=== PATIENT | female | born 1950 | race Caucasian/White ===

== ENCOUNTER 2023-07-17 09:01 | Outpatient (CLI) | payer MEDICARE, SELFPAY ==
--- NOTE | 2023-07-17 09:08 | ECG_ITS ---
Measurements Intervals [place] Rate: 60 P: 34 TX: 210 QRS: 52 QRSD: 94 T: 80 QT: 447 QTc: 449 Interpretive Statements SINUS RHYTHM WITH FIRST DEGREE AV BLOCK POOR R-WAVE PROGRESSION BORDERLINE ECG NO PREVIOUS ECG AVAILABLE FOR COMPARISON Electronically Signed On 07-17-2023 18:19:35 WATER QUALITY ANALYST by Serg Parker M.D.
[2023-07-17 09:55] LABS: Hematocrit 35.3 % (37.0-47.0); Hemoglobin 10.8 g/dL (12.0-15.0); Mean Corpuscular HGB Conc 30.6 g/dl (32-36); Mean Corpuscular Hemoglobin 27.3 pg (26-34); Mean Corpuscular Volume 89.1 fl (80-100); Mean Platelet Volume 9.8 fl (7.4-10.4); Platelet Count Result 258 k/mm3 (150-375); Red Blood Count 3.96 M/mm3 (4.2-5.4); Red Cell Distribution Width 15.1 % (11.5-14.5); White Blood Count 7.1 K/mm3 (4.5-10.0)
[2023-07-17 10:09] LABS: INR 1.1; Prothrombin Time 14.6 Seconds (11.1-14.7)
[2023-07-17 10:10] LABS: Partial Thromboplastin Time 28.7 SECONDS (22.3-36.8)
[2023-07-17 10:11] LABS: Anion Gap 6 mmol/L (8-16); Blood Urea Nitrogen 13 mg/dL (7-17); Calcium 9.1 mg/dL (8.4-10.2); Carbon Dioxide 28 mmol/L (22-30); Chloride 103 mmol/L (98-107); Estimated Glomerular Filt Rate 54; Glucose 226 mg/dL (65-110); Potassium 3.8 mmol/L (3.4-5.0); Sodium 137 mmol/L (137-145)
== END 2023-07-17 09:02 | disposition home or self-care (01) ==
LOC: ANHSURGERY 09:07
PROVIDERS: Anesthesiology; PCP Internal Medicine; Visit Provider Student in an Organized Health Care Education/Training Program
DX: N85.9 Noninflammatory disorder of uterus, unspecified (principal); N94.89 Other specified conditions associated with female genital organs and menstrual cycle; E11.9 Type 2 diabetes mellitus without complications; Z01.818 Encounter for other preprocedural examination; I12.9 Hypertensive chronic kidney disease with stage 1 through stage 4 chronic kidney disease, or unspecified chronic kidney disease; N18.9 Chronic kidney disease, unspecified; I44.0 Atrioventricular block, first degree
CPT/HCPCS: 36415; 80048; 85027; 85610; 85730; 86850; 86900; 86901; 93005

== ENCOUNTER 2023-07-20 00:40 | Day surgery (SDC) | payer MEDICARE, SELFPAY ==
--- NOTE | 2023-07-10 14:06 | PC.NURSE ---
Report to the Outpatient Waiting Room, entrance under the green pavilion located off [facility], at time _1000 on date ___07/20/23____. Planned Procedure Time: _1200 . Time changes happen often and if your time is changed the preop area will call you the afternoon before. - You and your visitor will be asked to self-screen and do not enter if you have any COVID symptoms. - A mask is optional within the hospital at this time. Patients may have clear liquids (water, carbonated beverages, clear teas, apple juice) until 3 hours prior to surgery( 9:00AM) with a maximum of 20 ounces. - No food from midnight until time of surgery - Infants may have breast milk until 4 hours before surgery, infant formula 6 hours prior to surgery. - Children will be allowed to drink immediately following surgery. If applicable, please bring a bottle or sippy cup to assist with drinking. Juice, water, soda, and popsicles are readily available. For infants on formula, please bring formula the day of surgery. Pacifiers are allowed. Take the following medications with a SIP of water the morning of surgery: _AMLODIPINE,CITALOPRAM AND METOPROLOL ,ALPRAZOLAM IF NEEDED DO NOT STOP ANY OF YOUR OTHER PRESCRIPTION MEDICATIONS PRIOR TO SURGERY ?EXCEPT THE FOLLOWING Medications to discontinue per physician _PT TO CALL DR DOUGHERTY WHEN TO HOLD ASPIRIN AND PLAVIX, HOLD ALL VITAMINS AND SUPPLEMENTS 3 DAYS PRE OP .LAST DOSE 07/16/23_ Please no make-up, nail mohawk, hairspray, perfume, deodorant, or body powder the day of surgery. No jewelry (including any body piercings) or valuables the day of surgery, leave them at home. Please take a shower or bath the night before, or the morning of, surgery with an antibacterial soap. Wear comfortable, loose fitting clothing. Children are encouraged to wear pajamas. - Jewelry must be removed prior to entering the operating room. Rings and piercings that are not removed may be cut off. - The hospital will not accept responsibility for valuables. - Please leave all valuables, including medications, at home the day of surgery. If you are going home after surgery, a licensed bulk delivery driver must drive you home. - NO public transportation without another adult if you receive anesthesia. - We recommend that an adult stay with you for 24 hours following discharge. - We also recommend that you do not drive, make important decision, drink alcoholic beverages, or take any drugs that were not prescribed by your health care provider for at least 24 hours after your discharge time. Follow any additional instructions given to you from your surgeon. If you or anyone in your household have experienced Covid symptoms in the past week, please notify your surgeon or the nurse liaison at the phone number below for possible testing. Telephone instructions given to ____PATIENT and asked if any additional questions and then verbalized understanding. Patient advised to call surgeon office or pre surgery nurse liaison [phone] if any additional questions.
[2023-07-10 14:31] VITALS: BMI 22.3
[2023-07-20] VITALS (7 sets, daily range): BP systolic 104–146; BP diastolic 54–88; PULSE 57–85; RESP 14–19; TEMP 36.2–37.2; O2SAT 96–100; BMI 22.6
--- NOTE | 2023-07-20 07:22 | PM.IMHP ---
H&P: HPI History of Present Illness Date/Time: 07/20/23 07:22 Chief Complaint: right adnexal mass thickened endometrium on pelvic US Narrative: 73-year-old female who presents to discuss a cystic mass noted on her right ovary.? Patient was getting a routine screening lung scan when an adnexal mass was incidentally found.? Patient was asymptomatic.? She denied any pelvic pain, bloating.? She denies any inadvertent weight loss.? She denies any early satiety.? Patient does report some difficulties initiating voiding.? Patient reports occasional constipation.? Patient's imaging also showed an endometrial lining of 5 mm.? Patient denies any vaginal bleeding. Review of Systems Cardiovascular: Cardiovascular: Denies chest pain, Denies leg edema, Denies palpitations, Denies dyspnea and Denies dyspnea on exertion Respiratory: Respiratory: Denies cough, Denies dyspnea and Denies dyspnea on exertion Gastrointestinal: Gastrointestinal: Denies abdominal pain, Denies constipation, Denies diarrhea, Denies nausea and Denies vomiting Genitourinary: Genitourinary: Denies hematuria, Denies urinary frequency, Denies dysuria, Denies pelvic pain, Denies urinary incontinence and Denies vaginal discharge Neurologic: Reports system reviewed and no additional complaints, except as documented Psychiatric: Psychiatric: Reports no additional psychiatric complaints Endocrine: Endocrine: Denies palpitations PMFSH Past Medical History Medical History Anxiety and depression Coronary atherosclerosis (~01/2011) Two Drug Eluting Right Cornary Stents / and 06/2010 Diabetes type 2 GERD (gastroesophageal reflux disease) H/O central nervous system infection Hyperlipidemia Hypertension Vitamin D deficiency Surgical History Surgical History History of lumbar laminectomy (~06/2010) History of orthopedic surgery (~03/2012) rotator cuff History of tonsillectomy Family History Family History Mother Diabetes mellitus Hypertension Intracranial aneurysm, Onset Age: 57 Father Heart disease Sibling Heart disease brother Breast cancer sister Afib sister / brother Social History Social History (Updated 06/05/23 @ 11:04 by Stefani Moscoso CMA) Smoking packs per day: 1 Smoking cigarettes per day: 20.0 Years smoked: 40 Smoking pack-years: 40.00 Smoking status: Current every day smoker Tobacco type: cigarettes Alcohol intake: never Substance use: never Living arrangements: with family Occupation/Education: retired Gender identity (if verbalized by the patient): Female Sexual Orientation (if Verbalized by the Patient): Straight or Heterosexual Spiritual care concerns: No Meds Home Medications and Allergies Home Medications Medication Instructions Recorded Confirmed Type alprazolam 0.5 mg tablet 0.25 mg PO PRN PRN Anxiety 06/05/23 07/10/23 History atorvastatin 40 mg tablet 40 mg PO DAILY 06/05/23 07/10/23 History citalopram 20 mg tablet 20 mg PO DAILY 06/05/23 07/10/23 History clopidogrel 75 mg tablet 75 mg PO DAILY 06/05/23 07/10/23 History dapagliflozin propanediol 10 mg 10 mg PO DAILY 06/05/23 07/10/23 History tablet (Farxiga) ergocalciferol (vitamin D2) 1,250 1,250 mcg PO WEEKLY 06/05/23 07/10/23 History mcg (50,000 unit) capsule esomeprazole magnesium 40 mg 40 mg PO DAILY 06/05/23 07/10/23 History capsule,delayed release gabapentin 100 mg capsule 100 mg PO PRN PRN Pain 06/05/23 07/10/23 History glimepiride 4 mg tablet 4 mg PO DAILY 06/05/23 07/10/23 History insulin glargine U-300 conc 300 15 unit subcut HS 06/05/23 07/10/23 History unit/mL (1.5 mL) subcutaneous pen (Sydnee Franklin U-300 Insulin) lisinopril 20 mg tablet 20 mg PO DAILY 06/05/23 07/10/23 History metformin 1,000 mg tablet 1,000 mg PO DAILY
[2023-07-20 10:21] LABS: Glucose Point of Care 107 mg/dl (65-105)
[2023-07-20] MEDS: KETOROLAC 15 MG/ML VIAL (*BKC) IV PUSH (10:35)
[2023-07-20] MEDS: LACTATED RINGERS 1,000 ML 30 ML IV CONT ×2 (10:35→12:53)
[2023-07-20] MEDS: ACETAMINOPHEN 500 MG TABLET 1000 MG PO (10:35)
--- NOTE | 2023-07-20 11:33 | WPDANESEPPF ---
Anes - Initial Pre Proc Eval Procedure: Operation Date: 07/20/23 12:00 Proposed Procedures p Endometrial Biopsy, Laparoscopic Right Salpingo Oophorectomy - Greg Guerra MD Date/Time: 07/20/23 11:33 Surgeon: Greg Guerra MD Pre Op Diagnosis: endometrial dysplasia, right adnexal mass Patient Data Age: 73 Gender: F Height: 1.63 m Weight: 59.75 kg Last Vital Signs Temp 36.2 C L 07/20/23 10:53 Pulse 57 L 07/20/23 10:53 Resp 14 07/20/23 10:53 BP 142/69 H 07/20/23 10:53 Pulse Ox 97 07/20/23 10:53 Allergies Allergy/AdvReac Type Severity Reaction Status Date / Time Penicillins Allergy Intermediate Hives Verified 07/20/23 10:14 Iodinated Contrast Media AdvReac Severe Confusion Verified 07/20/23 10:14 Home Medications Medication Instructions Recorded Confirmed Type alprazolam 0.5 mg tablet 0.25 mg PO PRN PRN Anxiety 06/05/23 07/20/23 History atorvastatin 40 mg tablet 40 mg PO DAILY 06/05/23 07/10/23 History citalopram 20 mg tablet 20 mg PO DAILY 06/05/23 07/10/23 History clopidogrel 75 mg tablet 75 mg PO DAILY 06/05/23 07/10/23 History dapagliflozin propanediol 10 mg 10 mg PO DAILY 06/05/23 07/10/23 History tablet (Farxiga) ergocalciferol (vitamin D2) 1,250 1,250 mcg PO WEEKLY 06/05/23 07/20/23 History mcg (50,000 unit) capsule esomeprazole magnesium 40 mg 40 mg PO DAILY 06/05/23 07/10/23 History capsule,delayed release gabapentin 100 mg capsule 100 mg PO PRN PRN Pain 06/05/23 07/10/23 History glimepiride 4 mg tablet 4 mg PO DAILY 06/05/23 07/20/23 History insulin glargine U-300 conc 300 15 unit subcut HS 06/05/23 07/10/23 History unit/mL (1.5 mL) subcutaneous pen (Sydnee Franklin U-300 Insulin) lisinopril 20 mg tablet 20 mg PO DAILY 06/05/23 07/10/23 History metformin 1,000 mg tablet 1,000 mg PO DAILY 06/05/23 07/10/23 History metoprolol tartrate 25 mg tablet 25 mg PO QAM 06/05/23 07/10/23 History tizanidine 4 mg tablet 2 mg PO HS 06/05/23 07/10/23 History aspirin 81 mg tablet,delayed 81 mg PO DAILY 07/10/23 07/10/23 History release (Adult Low Dose Aspirin) calcitriol 0.25 mcg capsule 0.25 mcg PO DAILY 07/10/23 07/10/23 History Laboratory Tests 07/20/23 10:19 POC Capillary Glucose 107 H mg/dl (65-105) Patient hx anesthesia problems: none Family hx anesthesia problems: none Results Review: All pre-operative results and documents have been reviewed as part of the pre-operative evaluation. [facility] Past Medical History Medical History Anxiety and depression Coronary atherosclerosis (~01/2011) Two Drug Eluting Right Cornary Stents / and 06/2010 Diabetes type 2 GERD (gastroesophageal reflux disease) H/O central nervous system infection Hyperlipidemia Hypertension Vitamin D deficiency Surgical History Surgical History History of lumbar laminectomy (~06/2010) History of orthopedic surgery (~03/2012) rotator cuff History of tonsillectomy Family History Family History Mother Diabetes mellitus Hypertension Intracranial aneurysm, Onset Age: 57 Father Heart disease Sibling Heart disease brother Breast cancer sister Afib sister / brother Social History Social History Smoking packs per day: 1 Smoking cigarettes per day: 20.0 Years smoked: 40 Smoking pack-years: 40.00 Smoking status: Current every day smoker Tobacco type: cigarettes Alcohol intake: never Substance use: never Living arrangements: with family Occupation/Education: retired Gender identity (if verbalized by the patient): Female Sexual Orientation (if Verbalized by the Patient): Straight or Heterosexual Spiritual care concerns: No Anes - Eval Final PreProcedure Day of Procedure 07/20/23 11:33
--- NOTE | 2023-07-20 11:55 | WPDHPUPDATE1 ---
History and Physical Update Update Date/Time: 07/20/23 11:55 History and Physical has been reviewed, including an updated exam of the patient. There are NO changes in the patient's condition. Risks, benefits, and alternatives have been discussed and questions answered. Patient agrees to proceed with procedure.
[2023-07-20] MEDS: LIDO 1%/EPINEPHRINE 1:100,000 50 ML VIAL INFILTRATE (12:35)
--- NOTE | 2023-07-20 12:43 | W.PM.PROC2 ---
Procedure Note - Detailed Date of Procedure 07/20/23 Pre-op Diagnosis right adnexal mass thickened endometrium on US Post-op Diagnosis Same Procedure Performed dilation and curettage laparoscopic right salpingo-oophorectomy Surgeon Greg Guerra MD Anesthesia General Findings uterine perforation noted at the uterine fundus. Normal appearing bowel serosa on survey, normal appearing fallopian tubes bilaterally right ovary with enlarged cystic structure Description of Procedure The patient was taken to the operating room where general endotracheal anesthesia was undertaken and found to be adequate. She was then prepped and draped in the dorsal lithotomy position and placed in adjustable stirrups. A pre-operative team brief and a time out were completed. A catheter was placed to drain the bladder. Retractors were placed placed in the vagina and the cervix was identified. Anterior cervix was grasped with a tenaculum. Cervix was dilated sequentially using Hegar dilators to allow passage of curettage. Uterus sounded to 6.5 cm. Sharp curettage was performed. Scant amount of tissue was obtained. Specimen was placed on Telfa and sent for pathology. Attention was then turned to the abdomen which was anesthetized umbilically with injected anesthestic. A 10 mm skin incision was made in the umbilicus. A 5 mm optical trocar was then placed with direct camera visualization of the abdominal layers during placement. The trocar stylet was removed and the camera was used to verify intra-abdominal placement. CO2 insufflation was then connected and resumed. The pelvis was inspected. Upon inspection, it appeared the was a perforation at the fundus of the uterus. The was a small amount of stable bleeding noted. Survey was performed and the surrounding organs were examined. There were no serosal injuries noted. No bleeding noted. A left lower quadrant 5 mm port was placed, in addition to a right lower quadrant 5 port in the standard fashion after using local anesthetic. The enlarged right ovarian cystic mass was identified. The right live visit the ligament and its vessels were clamped, cauterized, ligated with the LigaSure device. This dissection was carried along the inferior peritoneum the ovary. Ligation continued to include all suspensory ligaments and vessels of the ovary. The ovary fallopian tube were then transected from the uterine body. the specimen was placed in a laparoscopic Endo pouch. The specimen was removed from the abdomen. There was no capsular rupture within the abdominal cavity. The uterine fundal injury from perforation was again examined. The perforation was cauterized with monopolar cautery. Good hemostasis was noted. The surgical field was thoroughly irrigated using normal saline. All surgical beds were noted to be hemostatic. A Ranfac with Vicryl suture was used to close all port sites greater than 8 mm in diameter. The abdomen was relieved of all CO2 gas. All remaining trocars were removed from the abdomen. Sponge, lap and needle counts were correct. All skin incisions were closed with 4-0 Vicryl suture subcuticularly. The uterine manipulator was removed from the uterus. Hemostasis of the cervix was noted. The urinary catheter was removed. The patient was taken out of dorsal lithotomy position. Anesthesia was reversed. The patient was taken to the PACU. Estimated Blood Loss 10 Urine Output 75 Drains No Packing No Pathology Yes ( Endometrial curettings) Complications No immediate complications Condition Stable Disposition PACU [facility] Billing Surgery - Charge Forward: Surgery Billing
[2023-07-20 13:04] LABS: Glucose Point of Care 116 mg/dl (65-105)
[2023-07-20] MEDS: oxyCODONE HCL (*CRX) 5 MG TAB IR PO (13:45)
== END 2023-07-20 14:28 | disposition home or self-care (01) ==
PROVIDERS: PCP Internal Medicine; Visit Provider Student in an Organized Health Care Education/Training Program
PROC: (CPT 49320; principal; 2023-07-20 12:00)
DX: D27.0 Benign neoplasm of right ovary (principal); N99.71 Accidental puncture and laceration of a genitourinary system organ or structure during a genitourinary system procedure; N83.8 Other noninflammatory disorders of ovary, fallopian tube and broad ligament; N70.11 Chronic salpingitis; I10 Essential (primary) hypertension; I25.10 Atherosclerotic heart disease of native coronary artery without angina pectoris; E78.5 Hyperlipidemia, unspecified; E55.9 Vitamin D deficiency, unspecified; E11.9 Type 2 diabetes mellitus without complications; K21.9 Gastro-esophageal reflux disease without esophagitis; F17.210 Nicotine dependence, cigarettes, uncomplicated; Z79.02 Long term (current) use of antithrombotics/antiplatelets; Z79.4 Long term (current) use of insulin; Z79.82 Long term (current) use of aspirin; Z79.84 Long term (current) use of oral hypoglycemic drugs; F41.8 Other specified anxiety disorders; Z98.890 Other specified postprocedural states; Z98.1 Arthrodesis status; Z95.5 Presence of coronary angioplasty implant and graft; Z86.79 Personal history of other diseases of the circulatory system; Z82.49 Family history of ischemic heart disease and other diseases of the circulatory system; Z80.3 Family history of malignant neoplasm of breast
CPT/HCPCS: 58661; 58558; 82948; 88305; A9270; J0330; J0360; J1100; J1596; J1885; J2250; J2405; J2704; J3010; J7120